=== PATIENT | male | born 1945 | race Two or more races ===

== ENCOUNTER 2019-07-13 15:47 | Inpatient (IN) | payer MEDICARE, MEDICAID ==
[~2019-07-13] VITALS: Ht 172.7 cm; Wt 77.1 kg
[2019-07-13] VITALS: BP 157/80
[2019-07-13] MEDS ORDERED: SODIUM CHLORIDE 0.9% 1,000 ML IV ONE (16:09)
[2019-07-13 17:13] LABS: CHLORIDE 92 mEq/L (98-107)
[2019-07-13 17:24] LABS: BASOPHILS % 0.8 % (0.0-2.0); EOSINOPHILS % 0.2 % (0.0-5.0); HEMATOCRIT. 40.5 % (42.0-52.0); HEMOGLOBIN. 14.6 g/dL (14.0-18.0); LYMPHOCYTES % 7.6 % (20.0-50.0); MEAN CORPUSCULAR HEMOGLOBIN 36.1 pg (28.0-32.0); MEAN CORPUSCULAR VOLUME 100.4 fL (80.0-94.0); MEAN PLATELET VOLUME 8.1 fl (7.4-10.4); MONOCYTES % 11.3 % (2.0-8.0); NEUTROPHILS % 80.1 % (40.0-76.0); PLATELET 516 x1000/uL (130-400); RED BLOOD CELL COUNT 4.03 mill/uL (4.7-6.1); RED CELL DISTRIBUTION WIDTH 12.9 % (11.6-14.6)
[2019-07-13] MEDS ORDERED: POTASSIUM CHLORIDE 20MEQ TABLET SR PO ONE (17:45)
[2019-07-13] MEDS ORDERED: KCL 20MEQ/100ML PREMIX 100 ML IV ONE (17:45)
[2019-07-13] MEDS ORDERED: LORAZEPAM 1MG TABLET PO ONE (19:30)
[2019-07-13 22:00] VITALS: BP 167/91
[2019-07-13] MEDS ORDERED: ONDANSETRON HCL 4MG/2ML INJ IV PRN (23:45)
[2019-07-13] MEDS ORDERED: ACETAMINOPHEN 325MG TABLET PO PRN (23:45)
[2019-07-13] MEDS ORDERED: CLONIDINE 0.1MG TABLET PO PRN (23:45)
[2019-07-13] MEDS ORDERED: DOCUSATE SODIUM 100MG CAPSULE PO PRN (23:45)
[2019-07-13] MEDS ORDERED: GUAIFENESIN 200MG/10ML SUGAR FREE UDC PO PRN (23:45)
[2019-07-14] MEDS: HYDROCODONE/ACETAMINOPHEN 5/325MG TABLET PO PRN ×3 (00:33→16:48)
[2019-07-14] MEDS ORDERED: KCL 10MEQ/50ML PREMIX 50 ML IV SCH (01:00)
[2019-07-14 04:00] VITALS: BP 152/82
[2019-07-14 07:00] LABS: BASOPHILS % 0.3 % (0.0-2.0); EOSINOPHILS % 0.4 % (0.0-5.0); HEMATOCRIT. 33.2 % (42.0-52.0); HEMOGLOBIN. 11.6 g/dL (14.0-18.0); LYMPHOCYTES % 9.3 % (20.0-50.0); MEAN CORPUSCULAR HEMOGLOBIN 35.3 pg (28.0-32.0); MEAN CORPUSCULAR VOLUME 100.5 fL (80.0-94.0); MEAN PLATELET VOLUME 8.2 fl (7.4-10.4); PLATELET 482 x1000/uL (130-400); RED CELL DISTRIBUTION WIDTH 12.2 % (11.6-14.6)
[2019-07-14 07:10] LABS: CHLORIDE 98 mEq/L (98-107)
[2019-07-14 07:24] LABS: HDL CHOLESTEROL 18 mg/dL (40-59); LDL CHOLESTEROL 77 mg/dL (5-100)
[2019-07-14 08:00] VITALS: BP 117/74
[2019-07-14] MEDS: AMLODIPINE 10MG TABLET PO SCH (09:09)
[2019-07-14] MEDS: ASPIRIN 81MG EC TABLET PO SCH (09:09)
[2019-07-14] MEDS: ENOXAPARIN 40MG/0.4ML SYR SUBCUT SCH (09:10)
[2019-07-14 12:00] VITALS: BP 126/70
[2019-07-14] MEDS ORDERED: IBUP-2030 PO (15:15)
[2019-07-14] MEDS ORDERED: CARV6.2548 PO (15:15)
[2019-07-14] MEDS ORDERED: AMLO10TA80 PO (15:15)
[2019-07-14] MEDS ORDERED: OXYC-523 PO (15:15)
[2019-07-14] MEDS ORDERED: ATOR-2 PO (15:15)
[2019-07-14] MEDS ORDERED: LOSA25TA26 PO (15:15)
[2019-07-14] MEDS ORDERED: COLC0.6C3 PO (15:15)
[2019-07-14] MEDS ORDERED: ALLO100T PO (15:15)
[2019-07-14 15:32] LABS: CLARITY URINE CLOUDY (CLEAR); COLOR URINE DARK YELLOW (YELLOW); KETONES URINE NEGATIVE (NEGATIVE); LEUKOCYTE ESTERASE URINE TRACE (NEGATIVE); NITRITE URINE POSITIVE (NEGATIVE); OCCULT BLOOD URINE NEGATIVE (NEGATIVE); PH URINE 6.5 (4.5-8.0); PROTEIN URINE 1+ (NEGATIVE); SPECIFIC GRAVITY URINE 1.028 (1.005-1.030); UROBILINOGEN URINE >8.0 E.U./dL (0.2-1.0)
[2019-07-14 16:00] VITALS: BP 119/67
[2019-07-14] MEDS ORDERED: POTASSIUM CHLORIDE 20MEQ TABLET SR PO NR (18:00)
[2019-07-14 20:00] VITALS: BP 138/74
[2019-07-15] VITALS: BP 150/76
[2019-07-15 04:00] VITALS: BP 135/69
[2019-07-15 06:51] LABS: HEMATOCRIT. 32.7 % (42.0-52.0); HEMOGLOBIN. 11.6 g/dL (14.0-18.0); MEAN CORPUSCULAR HEMOGLOBIN 35.8 pg (28.0-32.0); MEAN CORPUSCULAR VOLUME 100.5 fL (80.0-94.0); MEAN PLATELET VOLUME 8.3 fl (7.4-10.4); PLATELET 456 x1000/uL (130-400); RED BLOOD CELL COUNT 3.25 mill/uL (4.7-6.1); RED CELL DISTRIBUTION WIDTH 12.6 % (11.6-14.6)
[2019-07-15 07:16] LABS: CHLORIDE 98 mEq/L (98-107)
[2019-07-15 08:00] VITALS: BP 142/75
[2019-07-15] MEDS: ASPIRIN 81MG EC TABLET PO SCH (09:58)
[2019-07-15] MEDS: AMLODIPINE 10MG TABLET PO SCH (09:58)
[2019-07-15] MEDS: ENOXAPARIN 40MG/0.4ML SYR SUBCUT SCH (09:58)
[2019-07-15] MEDS: LEVOFLOXACIN 500MG PREMIX 100 ML IV SCH (09:59)
[2019-07-15] MEDS ORDERED: MAGNESIUM 2 G PREMIX 50 ML IV NR (10:00)
[2019-07-15 12:00] VITALS: BP 133/68
[2019-07-15 14:58] LABS: PLATELET ESTIMATE INCREASED
[2019-07-15 16:00] VITALS: BP 118/67
[2019-07-15] MEDS: THIAMINE HCL 100MG TABLET PO SCH (18:10)
[2019-07-15] MEDS: FOLIC ACID 1MG TABLET PO SCH (18:10)
[2019-07-15 20:00] VITALS: BP 139/81
[2019-07-15 20:43] LABS: CREATINE KINASE 46 IU/L (39-308)
[2019-07-15 21:08] LABS: FOLIC ACID (FOLATE) SERUM > 20.00 ng/mL (>5.38)
[2019-07-15 21:18] LABS: VITAMIN B12 SERUM 334 pg/mL (211-911)
[2019-07-16] VITALS: BP 149/80
[2019-07-16 04:00] VITALS: BP 148/83
[2019-07-16 06:36] LABS: CHLORIDE 97 mEq/L (98-107)
[2019-07-16 08:16] VITALS: BP 146/81
[2019-07-16] MEDS: THIAMINE HCL 100MG TABLET PO SCH (08:37)
[2019-07-16] MEDS: FOLIC ACID 1MG TABLET PO SCH (08:37)
[2019-07-16] MEDS: ASPIRIN 81MG EC TABLET PO SCH (08:37)
[2019-07-16] MEDS: LEVOFLOXACIN 500MG PREMIX 100 ML IV SCH (08:38)
[2019-07-16] MEDS: ENOXAPARIN 40MG/0.4ML SYR SUBCUT SCH (08:38)
[2019-07-16] MEDS: AMLODIPINE 10MG TABLET PO SCH (09:00)
[2019-07-16] MEDS ORDERED: MAGNESIUM 1 G PREMIX 100 ML IV SCH (10:00)
[2019-07-16 11:21] LABS: CREATINE KINASE 31 IU/L (39-308)
[2019-07-16 12:00] VITALS: BP 136/79
[2019-07-16] MEDS: HYDROCODONE/ACETAMINOPHEN 5/325MG TABLET PO PRN (14:05)
[2019-07-16] MEDS: POTASSIUM CHLORIDE 20MEQ TABLET SR PO SCH (14:46)
[2019-07-16 16:30] VITALS: BP 152/81
[2019-07-16] MEDS: CYANOCOBALAMIN 1000MCG/ML VIAL IM SCH (19:13)
[2019-07-16] MEDS ORDERED: LIDOCAINE HCL/EPINEPHRINE 1%-EPI 1:100,000 20 ML VIAL INFIL NR (19:45)
[2019-07-16] MEDS ORDERED: METHYLPREDNISOLONE ACETATE 40MG/ML VIAL IM NR (19:45)
[2019-07-16 20:00] VITALS: BP 161/82
[2019-07-16] MEDS: CELECOXIB 200MG CAPSULE PO SCH (20:57)
[2019-07-16] MEDS: METHYLPREDNISOLONE SOD SUCC 40 MG/ML VIAL IV SCH (20:57)
[2019-07-17] VITALS: BP 159/77
[2019-07-17 04:00] VITALS: BP 160/60
[2019-07-17 07:06] LABS: MEAN CORPUSCULAR VOLUME 100.9 fL (80.0-94.0); PLATELET 547 x1000/uL (130-400); RED BLOOD CELL COUNT 3.92 mill/uL (4.7-6.1); RED CELL DISTRIBUTION WIDTH 12.9 % (11.6-14.6)
[2019-07-17 07:18] LABS: CHLORIDE 100 mEq/L (98-107)
[2019-07-17 08:00] VITALS: BP 155/93
[2019-07-17 08:00] LABS: HEMATOCRIT. 39.6 % (42.0-52.0); HEMOGLOBIN. 13.7 g/dL (14.0-18.0)
[2019-07-17 12:00] VITALS: BP 149/87
[2019-07-17] MEDS: METHYLPREDNISOLONE SOD SUCC 40 MG/ML VIAL IV SCH ×2 (12:19→21:14)
[2019-07-17] MEDS: ASPIRIN 81MG EC TABLET PO SCH (12:20)
[2019-07-17] MEDS: FOLIC ACID 1MG TABLET PO SCH (12:20)
[2019-07-17] MEDS: CYANOCOBALAMIN 1000MCG/ML VIAL IM SCH (12:20)
[2019-07-17] MEDS: THIAMINE HCL 100MG TABLET PO SCH (12:20)
[2019-07-17] MEDS: POTASSIUM CHLORIDE 20MEQ TABLET SR PO SCH (12:20)
[2019-07-17] MEDS: AMLODIPINE 10MG TABLET PO SCH (12:21)
[2019-07-17] MEDS: CALCIUM CARBONATE/VITAMIN D3 500MG TABLET PO SCH (12:21)
[2019-07-17] MEDS: CELECOXIB 200MG CAPSULE PO SCH ×2 (12:22→21:14)
[2019-07-17] MEDS: LEVOFLOXACIN 500MG PREMIX 100 ML IV SCH (12:22)
[2019-07-17] MEDS: CALCITONIN,SALMON, 3.7 ML NASAL SPRAY ONENSTRL SCH (12:22)
[2019-07-17] MEDS: ENOXAPARIN 40MG/0.4ML SYR SUBCUT SCH (12:22)
[2019-07-17 12:55] LABS: PLATELET ESTIMATE MARKEDLY INCREASED
[2019-07-17 16:13] VITALS: BP 127/74
[2019-07-17 20:00] VITALS: BP 129/73
[2019-07-18 04:00] VITALS: BP 154/73
[2019-07-18 08:00] VITALS: BP 144/71
[2019-07-18] MEDS: METHYLPREDNISOLONE SOD SUCC 40 MG/ML VIAL IV SCH ×2 (08:30→20:18)
[2019-07-18] MEDS: FOLIC ACID 1MG TABLET PO SCH (08:30)
[2019-07-18] MEDS: CYANOCOBALAMIN 1000MCG/ML VIAL IM SCH (08:30)
[2019-07-18] MEDS: ASPIRIN 81MG EC TABLET PO SCH (08:30)
[2019-07-18] MEDS: POTASSIUM CHLORIDE 20MEQ TABLET SR PO SCH (08:30)
[2019-07-18] MEDS: THIAMINE HCL 100MG TABLET PO SCH (08:30)
[2019-07-18] MEDS: CALCIUM CARBONATE/VITAMIN D3 500MG TABLET PO SCH (08:31)
[2019-07-18] MEDS: ENOXAPARIN 40MG/0.4ML SYR SUBCUT SCH (08:31)
[2019-07-18] MEDS: AMLODIPINE 10MG TABLET PO SCH (08:31)
[2019-07-18] MEDS: CELECOXIB 200MG CAPSULE PO SCH ×2 (08:31→20:19)
[2019-07-18] MEDS: CALCITONIN,SALMON, 3.7 ML NASAL SPRAY ONENSTRL SCH (08:35)
[2019-07-18] MEDS: LEVOFLOXACIN 500MG PREMIX 100 ML IV SCH (10:20)
[2019-07-18 12:00] VITALS: BP 132/76
[2019-07-18 13:06] LABS: ANTI-DNA DOUBLE STRANDED QUANT < 1 IU/mL (0-9); RNP ANTIBODY < 0.2 AI (0.0-0.9); SMITH ANTIBODY < 0.2 AI (0.0-0.9)
[2019-07-18 15:08] LABS: COMPLEMENT C3 211 mg/dL (82-167)
[2019-07-18 16:00] VITALS: BP 131/74
[2019-07-18 20:00] VITALS: BP 119/65
[2019-07-18] MEDS: HYDROCODONE/ACETAMINOPHEN 5/325MG TABLET PO PRN (20:18)
[2019-07-19] VITALS: BP 115/70
[2019-07-19] MEDS: METHYLPREDNISOLONE SOD SUCC 40 MG/ML VIAL IV SCH ×5 (00:28→23:06)
[2019-07-19 04:00] VITALS: BP 140/70
[2019-07-19 08:00] VITALS: BP 138/66
[2019-07-19] MEDS: THIAMINE HCL 100MG TABLET PO SCH (08:38)
[2019-07-19] MEDS: POTASSIUM CHLORIDE 20MEQ TABLET SR PO SCH (08:38)
[2019-07-19] MEDS: ENOXAPARIN 40MG/0.4ML SYR SUBCUT SCH (08:38)
[2019-07-19] MEDS: CALCIUM CARBONATE/VITAMIN D3 500MG TABLET PO SCH (08:38)
[2019-07-19] MEDS: AMLODIPINE 10MG TABLET PO SCH (08:38)
[2019-07-19] MEDS: ASPIRIN 81MG EC TABLET PO SCH (08:38)
[2019-07-19] MEDS: FOLIC ACID 1MG TABLET PO SCH (08:38)
[2019-07-19] MEDS: CYANOCOBALAMIN 1000MCG/ML VIAL IM SCH (08:38)
[2019-07-19] MEDS: CELECOXIB 200MG CAPSULE PO SCH ×2 (08:39→21:12)
[2019-07-19] MEDS: LEVOFLOXACIN 500MG PREMIX 100 ML IV SCH (08:44)
[2019-07-19] MEDS: CALCITONIN,SALMON, 3.7 ML NASAL SPRAY ONENSTRL SCH (08:44)
[2019-07-19 12:00] VITALS: BP 131/76
[2019-07-19 13:06] LABS: 25-HYDROXY VITAMIN D3 6.8 ng/mL (.)
[2019-07-19 15:10] LABS: ANGIOTENSION CONVERTING ENZYME 31 U/L (14-82); ANTI-MYELOPEROXIDASE AB < 9.0 U/mL (0.0-9.0); ANTI-PROTEINASE 3 ABS < 3.5 U/mL (0.0-3.5)
[2019-07-19 16:00] VITALS: BP 128/71
[2019-07-19 17:06] LABS: ALDOLASE 8.1 U/L (3.3-10.3)
[2019-07-19 20:00] VITALS: BP 121/74
[2019-07-20] VITALS: BP 131/75
[2019-07-20 04:00] VITALS: BP 125/88
[2019-07-20] MEDS: METHYLPREDNISOLONE SOD SUCC 40 MG/ML VIAL IV SCH ×3 (05:06→17:12)
[2019-07-20 08:00] VITALS: BP 139/69
[2019-07-20] MEDS: LEVOFLOXACIN 500MG PREMIX 100 ML IV SCH (08:55)
[2019-07-20] MEDS: FOLIC ACID 1MG TABLET PO SCH (08:55)
[2019-07-20] MEDS: THIAMINE HCL 100MG TABLET PO SCH (08:55)
[2019-07-20] MEDS: CALCIUM CARBONATE/VITAMIN D3 500MG TABLET PO SCH (08:55)
[2019-07-20] MEDS: CELECOXIB 200MG CAPSULE PO SCH ×2 (08:55→21:51)
[2019-07-20] MEDS: ASPIRIN 81MG EC TABLET PO SCH (08:55)
[2019-07-20] MEDS: POTASSIUM CHLORIDE 20MEQ TABLET SR PO SCH (08:55)
[2019-07-20] MEDS: ENOXAPARIN 40MG/0.4ML SYR SUBCUT SCH (08:56)
[2019-07-20] MEDS: AMLODIPINE 10MG TABLET PO SCH (09:01)
[2019-07-20] MEDS: CALCITONIN,SALMON, 3.7 ML NASAL SPRAY ONENSTRL SCH (09:01)
[2019-07-20] MEDS: CYANOCOBALAMIN 1000MCG/ML VIAL IM SCH (09:01)
[2019-07-20 09:09] LABS: CYC CITRULLINATED PEP IgG/IgA 6 units (0-19)
[2019-07-20 12:00] VITALS: BP 123/66
[2019-07-20 16:00] VITALS: BP 129/73
[2019-07-20] MEDS: PREDNISONE 20MG TABLET PO SCH (18:59)
[2019-07-20 20:00] VITALS: BP 122/64
[2019-07-20] MEDS ORDERED: ERGOCALCIFEROL 50000UNITS CAPSULE PO SCH (21:00)
[2019-07-21] VITALS: BP 125/68
[2019-07-21 04:00] VITALS: BP 132/68
[2019-07-21 08:00] VITALS: BP 124/63
[2019-07-21] MEDS ORDERED: FOLIC ACID 1MG TABLET PO SCH (09:00)
[2019-07-21] MEDS: ENOXAPARIN 40MG/0.4ML SYR SUBCUT SCH (09:24)
[2019-07-21] MEDS: CALCITONIN,SALMON, 3.7 ML NASAL SPRAY ONENSTRL SCH (09:24)
[2019-07-21] MEDS: CALCIUM CARBONATE/VITAMIN D3 500MG TABLET PO SCH (09:25)
[2019-07-21] MEDS: CELECOXIB 200MG CAPSULE PO SCH (09:25)
[2019-07-21] MEDS: POTASSIUM CHLORIDE 20MEQ TABLET SR PO SCH (09:26)
[2019-07-21] MEDS: METHOTREXATE SODIUM 2 . 5MG TABLET PO SCH ×3 (09:26→17:56)
[2019-07-21] MEDS: AMLODIPINE 10MG TABLET PO SCH (09:26)
[2019-07-21] MEDS: PREDNISONE 20MG TABLET PO SCH ×3 (09:26→17:56)
[2019-07-21] MEDS: ASPIRIN 81MG EC TABLET PO SCH (09:27)
[2019-07-21] MEDS: THIAMINE HCL 100MG TABLET PO SCH (09:27)
[2019-07-21] MEDS: LEVOFLOXACIN 500MG PREMIX 100 ML IV SCH (11:23)
[2019-07-21 12:00] VITALS: BP 107/65
[2019-07-21 13:06] LABS: ANA IFA Negative (.)
[2019-07-21 14:57] VITALS: BP 107/65
[2019-07-21 16:00] VITALS: BP 126/69
[2019-07-23 13:10] LABS: ATYPICAL P-ANCA <1:20 titer (Neg:<1:20); CYTOPLASMIC C-ANCA <1:20 titer (Neg:<1:20); PERINUCLEAR P-ANCA <1:20 titer (Neg:<1:20)
== END 2019-07-21 19:00 | DRG 70 ==
LOC: ER 16:04 → 8WST 18:40 → EDBEDREQ 18:41 → EDBEDREQSVC 18:41 → ENRESERV 20:01
PROVIDERS: ADMIT Hospitalist; ATTEND Hospitalist
PROC: 0S9C3ZZ Drainage of Right Knee Joint, Percutaneous Approach (ICD-10-PCS; principal; 2019-07-16)
PROC: 0S9D3ZZ Drainage of Left Knee Joint, Percutaneous Approach (ICD-10-PCS; 2019-07-16)
PROC: 0R9 Upper Joints, Drainage (ICD-10-PCS; 2019-07-18)
PROC: 0R9G3ZZ Drainage of Right Acromioclavicular Joint, Percutaneous Approach (ICD-10-PCS; 2019-07-18)
DX: G93.41 Metabolic encephalopathy (principal); E43 Unspecified severe protein-calorie malnutrition; G82.50 Quadriplegia, unspecified; E87.1 Hypo-osmolality and hyponatremia; N39.0 Urinary tract infection, site not specified; M48.56XA Collapsed vertebra, not elsewhere classified, lumbar region, initial encounter for fracture; E87.6 Hypokalemia; M60.842 Other myositis, left hand; M60.841 Other myositis, right hand; M60.88 Other myositis, other site; I25.10 Atherosclerotic heart disease of native coronary artery without angina pectoris; I10 Essential (primary) hypertension; D64.9 Anemia, unspecified; M15.9 Polyosteoarthritis, unspecified; D72.810 Lymphocytopenia; E53.8 Deficiency of other specified B group vitamins; M06.9 Rheumatoid arthritis, unspecified; G93.0 Cerebral cysts; E55.9 Vitamin D deficiency, unspecified; M47.816 Spondylosis without myelopathy or radiculopathy, lumbar region; M50.30 Other cervical disc degeneration, unspecified cervical region; M51.36 Other intervertebral disc degeneration, lumbar region; M47.812 Spondylosis without myelopathy or radiculopathy, cervical region; J44.9 Chronic obstructive pulmonary disease, unspecified; Z74.01 Bed confinement status; Z86.73 Personal history of transient ischemic attack (TIA), and cerebral infarction without residual deficits; Z87.891 Personal history of nicotine dependence; Z79.899 Other long term (current) drug therapy; Z68.25 Body mass index [BMI] 25.0-25.9, adult; Z91.81 History of falling
CPT/HCPCS: 36415; 70551; 71045; 72141; 72146; 72148; 73030; 73100; 73110; 73130; 73220; 73521; 73562; 73630; 73718; 80061; 81003; 82085; 82140; 82164; 82306; 82550; 82607; 82746; 82962; 83520; 83735; 84134; 84484; 84550; 85651; 86160; 86200; 86225; 86235; 86256; 86431; 86592; 86780; 87077; 87186; 92610; 93005; 93306; 93970; 97162; 97166; 97530; 97535; 99291; J1030; J1650; J1956; J2920; J3420; J3475; J3480; J3490; J7030; J7040; J7512; J8610; A4315

== ENCOUNTER 2020-01-12 15:13 | Inpatient (IN) | payer MEDICARE, MEDICAID ==
[~2020-01-12] VITALS: Ht 172.7 cm; Wt 71.2 kg
[~2020-01-12 15:13] MED LIST: ALLO100T PO; AMLO10TA80 PO; ATOR-2 PO; CARV6.2548 PO; COLC0.6C3 PO; IBUP-2030 PO; LOSA25TA26 PO; OXYC-523 PO
[2020-01-12] MEDS ORDERED: ONDANSETRON HCL 4MG/2ML INJ IV STA (15:43)
[2020-01-12] MEDS ORDERED: SODIUM CHLORIDE 0.9% 1000ML BAG (SEPSIS BOLUS) IV ONE (15:45)
[2020-01-12 16:25] LABS: BASOPHILS % 0.6 % (0.0-2.0); EOSINOPHILS % 0.5 % (0.0-5.0); HEMATOCRIT. 46.1 % (42.0-52.0); HEMOGLOBIN. 15.9 g/dL (14.0-18.0); LYMPHOCYTES % 17.5 % (20.0-50.0); MEAN CORPUSCULAR HEMOGLOBIN 33.6 pg (28.0-32.0); MEAN CORPUSCULAR VOLUME 97.3 fL (80.0-94.0); MEAN PLATELET VOLUME 8.7 fl (7.4-10.4); MONOCYTES % 12.5 % (2.0-8.0); NEUTROPHILS % 68.9 % (40.0-76.0); PLATELET 251 x1000/uL (130-400); RED BLOOD CELL COUNT 4.74 mill/uL (4.7-6.1); RED CELL DISTRIBUTION WIDTH 17.2 % (11.6-14.6)
[2020-01-12 16:30] LABS: PROTHROMBIN TIME 11.2 sec (9.6-11.0)
[2020-01-12 16:35] LABS: CHLORIDE 93 mEq/L (98-107)
[2020-01-12] MEDS ORDERED: ASPIRIN 81MG TABLET PO ONE (17:30)
[2020-01-12 18:34] LABS: CLARITY URINE TURBID (CLEAR); COLOR URINE ORANGE (YELLOW); KETONES URINE TRACE (NEGATIVE); LEUKOCYTE ESTERASE URINE 3+ (NEGATIVE); NITRITE URINE POSITIVE (NEGATIVE); OCCULT BLOOD URINE NEGATIVE (NEGATIVE); PH URINE 8.5 (4.5-8.0); PROTEIN URINE 2+ (NEGATIVE); SPECIFIC GRAVITY URINE 1.022 (1.005-1.030); UROBILINOGEN URINE >=8.0 E.U./dL (0.2-1.0)
[2020-01-12] MEDS ORDERED: DOCUSATE SODIUM 100MG CAPSULE PO PRN (20:00)
[2020-01-12] MEDS ORDERED: ACETAMINOPHEN 325MG TABLET PO PRN (20:00)
[2020-01-12] MEDS ORDERED: GUAIFENESIN 200MG/10ML SUGAR FREE UDC PO PRN (20:00)
[2020-01-12] MEDS ORDERED: CLONIDINE 0.1MG TABLET PO PRN (20:00)
[2020-01-12] MEDS ORDERED: KCL 10MEQ/50ML PREMIX 50 ML IV ONE (20:00)
[2020-01-12] MEDS ORDERED: MAGNESIUM/ALUMINUM HYDROXIDE/SIMETHICONE 30ML UDC PO PRN (20:00)
[2020-01-12] MEDS ORDERED: ONDANSETRON HCL 4MG/2ML INJ IV PRN (20:00)
[2020-01-12] MEDS: DEXT 5%/0.45% NACL KCL 10MEQ/L 1,000 ML IV SCH (22:12)
[2020-01-12] MEDS: MULTIVITAMINS,THER W-MINERALS TABLET PO SCH (22:45)
[2020-01-12] MEDS: HYDROCODONE/ACETAMINOPHEN 5/325MG TABLET PO PRN (22:46)
[2020-01-12] MEDS ORDERED: PRED1TAB PO (22:52)
[2020-01-12 22:59] VITALS: BP 143/94
[2020-01-12] MEDS ORDERED: LEVOFLOXACIN 500MG PREMIX 100 ML IV SCH (23:30)
[2020-01-12 23:54] LABS: CREATINE KINASE 114 IU/L (39-308)
[2020-01-12 23:55] LABS: CREATINE KINASE MB FRACTION < 1.0 ng/mL (0.5-3.6)
[2020-01-13] VITALS: BP 113/80
[2020-01-13 04:00] VITALS: BP 123/77
[2020-01-13 06:14] LABS: CHLORIDE 96 mEq/L (98-107)
[2020-01-13 06:23] LABS: LDL CHOLESTEROL 98 mg/dL (5-100)
[2020-01-13 06:25] LABS: CREATINE KINASE 105 IU/L (39-308); HDL CHOLESTEROL 38 mg/dL (40-59)
[2020-01-13 06:28] LABS: CREATINE KINASE MB FRACTION 1.4 ng/mL (0.5-3.6)
[2020-01-13 06:42] LABS: BASOPHILS % 0.6 % (0.0-2.0); EOSINOPHILS % 1.6 % (0.0-5.0); HEMATOCRIT. 36.1 % (42.0-52.0); HEMOGLOBIN. 12.9 g/dL (14.0-18.0); LYMPHOCYTES % 22.7 % (20.0-50.0); MEAN CORPUSCULAR HEMOGLOBIN 34.4 pg (28.0-32.0); MEAN CORPUSCULAR VOLUME 96.4 fL (80.0-94.0); MEAN PLATELET VOLUME 8.6 fl (7.4-10.4); MONOCYTES % 12.2 % (2.0-8.0); NEUTROPHILS % 62.9 % (40.0-76.0); PLATELET 160 x1000/uL (130-400); RED BLOOD CELL COUNT 3.75 mill/uL (4.7-6.1); RED CELL DISTRIBUTION WIDTH 16.5 % (11.6-14.6)
[2020-01-13 08:00] VITALS: BP 150/80
[2020-01-13] MEDS: ASPIRIN 81MG EC TABLET PO SCH (08:24)
[2020-01-13] MEDS: ENOXAPARIN 40MG/0.4ML SYR SUBCUT SCH (08:24)
[2020-01-13] MEDS: MULTIVITAMINS,THER W-MINERALS TABLET PO SCH (08:24)
[2020-01-13] MEDS: METOPROLOL TARTRATE 25MG TABLET PO SCH ×2 (08:24→20:10)
[2020-01-13] MEDS: DEXT 5%/0.45% NACL KCL 10MEQ/L 1,000 ML IV SCH ×2 (08:25→22:38)
[2020-01-13] MEDS ORDERED: MAGNESIUM 2 G PREMIX 50 ML IV SCH (11:00)
[2020-01-13 12:00] VITALS: BP 129/70
[2020-01-13] MEDS: HYDROCODONE/ACETAMINOPHEN 5/325MG TABLET PO PRN ×2 (13:03→20:11)
[2020-01-13 20:00] VITALS: BP 114/65
[2020-01-13] MEDS: LEVOFLOXACIN 500MG PREMIX 100 ML IV SCH (20:11)
[2020-01-14] VITALS (7 sets, daily range): BP systolic 104–143; BP diastolic 65–80
[2020-01-14] MEDS: HYDROCODONE/ACETAMINOPHEN 5/325MG TABLET PO PRN ×2 (05:45→21:46)
[2020-01-14 05:52] LABS: HEMATOCRIT. 38.4 % (42.0-52.0); HEMOGLOBIN. 13.4 g/dL (14.0-18.0); MEAN CORPUSCULAR HEMOGLOBIN 34.2 pg (28.0-32.0); MEAN CORPUSCULAR VOLUME 98.2 fL (80.0-94.0); MEAN PLATELET VOLUME 8.5 fl (7.4-10.4); PLATELET 147 x1000/uL (130-400); RED BLOOD CELL COUNT 3.91 mill/uL (4.7-6.1); RED CELL DISTRIBUTION WIDTH 16.9 % (11.6-14.6)
[2020-01-14 06:04] LABS: CHLORIDE 97 mEq/L (98-107)
[2020-01-14] MEDS: ENOXAPARIN 40MG/0.4ML SYR SUBCUT SCH (08:31)
[2020-01-14] MEDS: MULTIVITAMINS,THER W-MINERALS TABLET PO SCH (08:31)
[2020-01-14] MEDS: ASPIRIN 81MG EC TABLET PO SCH (08:31)
[2020-01-14] MEDS: METOPROLOL TARTRATE 25MG TABLET PO SCH ×2 (08:31→21:37)
[2020-01-14] MEDS: DEXT 5%/0.45% NACL KCL 10MEQ/L 1,000 ML IV SCH ×2 (11:46→15:38)
[2020-01-14] MEDS ORDERED: MAGNESIUM 2 G PREMIX 50 ML IV ONE (12:00)
[2020-01-14 17:24] LABS: PLATELET ESTIMATE NORMAL
[2020-01-14] MEDS: LEVOFLOXACIN 500MG PREMIX 100 ML IV SCH (21:36)
[2020-01-15 00:20] VITALS: BP 115/68
[2020-01-15 04:00] VITALS: BP 125/75
[2020-01-15] MEDS: DEXT 5%/0.45% NACL KCL 10MEQ/L 1,000 ML IV SCH (04:45)
[2020-01-15 06:37] LABS: CHLORIDE 104 mEq/L (98-107)
[2020-01-15 07:43] VITALS: BP 137/73
[2020-01-15] MEDS: ASPIRIN 81MG EC TABLET PO SCH (08:23)
[2020-01-15] MEDS: MULTIVITAMINS,THER W-MINERALS TABLET PO SCH (08:23)
[2020-01-15] MEDS: ENOXAPARIN 40MG/0.4ML SYR SUBCUT SCH (08:24)
[2020-01-15] MEDS: METOPROLOL TARTRATE 25MG TABLET PO SCH ×2 (09:00→20:44)
[2020-01-15] MEDS: HYDROCODONE/ACETAMINOPHEN 5/325MG TABLET PO PRN (10:02)
[2020-01-15] MEDS: MAGNESIUM OXIDE 400MG TABLET PO SCH (10:39)
[2020-01-15 11:31] VITALS: BP 132/77
[2020-01-15] MEDS ORDERED: MAGNESIUM 2 G PREMIX 50 ML IV NR (12:00)
[2020-01-15 16:22] VITALS: BP 127/69
[2020-01-15 20:16] VITALS: BP 150/84
[2020-01-15] MEDS ORDERED: LEVOFLOXACIN 250MG TABLET PO SCH (21:00)
[2020-01-16 00:32] VITALS: BP 143/79
[2020-01-16 04:00] VITALS: BP 148/80
[2020-01-16 06:10] LABS: BASOPHILS % 0.4 % (0.0-2.0); EOSINOPHILS % 3.1 % (0.0-5.0); HEMATOCRIT. 34.9 % (42.0-52.0); LYMPHOCYTES % 29.8 % (20.0-50.0); MEAN CORPUSCULAR VOLUME 98.9 fL (80.0-94.0); MEAN PLATELET VOLUME 8.1 fl (7.4-10.4); NEUTROPHILS % 54.7 % (40.0-76.0); PLATELET 174 x1000/uL (130-400); RED BLOOD CELL COUNT 3.53 mill/uL (4.7-6.1); RED CELL DISTRIBUTION WIDTH 17.1 % (11.6-14.6)
[2020-01-16 07:23] LABS: CHLORIDE 105 mEq/L (98-107)
[2020-01-16 08:00] VITALS: BP 144/81
[2020-01-16] MEDS: METOPROLOL TARTRATE 25MG TABLET PO SCH (08:52)
[2020-01-16] MEDS: ASPIRIN 81MG EC TABLET PO SCH (09:24)
[2020-01-16] MEDS: ENOXAPARIN 40MG/0.4ML SYR SUBCUT SCH (09:24)
[2020-01-16] MEDS: MAGNESIUM OXIDE 400MG TABLET PO SCH (09:24)
[2020-01-16] MEDS: MULTIVITAMINS,THER W-MINERALS TABLET PO SCH (09:25)
[2020-01-16] MEDS: HYDROCODONE/ACETAMINOPHEN 5/325MG TABLET PO PRN (09:35)
[2020-01-16] MEDS ORDERED: MAGNESIUM 2 G PREMIX 50 ML IV NR (11:30)
[2020-01-16 12:00] VITALS: BP 151/85
[2020-01-16 13:43] VITALS: BP 151/85
[2020-01-16] MEDS ORDERED: AMLODIPINE 5MG TABLET PO SCH (21:00)
== END 2020-01-16 14:43 | disposition home health service (06) | DRG 690 ==
LOC: ER 15:13 → 6WST 17:30 → EDBEDREQSVC 17:34 → EDBEDREQ 17:34 → EDBEDREQTM 17:34 → ENRESERV 20:20 → 7WST 01-15 11:32
PROVIDERS: ADMIT Hospitalist; ATTEND Hospitalist
DX: N39.0 Urinary tract infection, site not specified (principal); I25.110 Atherosclerotic heart disease of native coronary artery with unstable angina pectoris; E87.2 Acidosis; R07.89 Other chest pain; E83.42 Hypomagnesemia; E87.6 Hypokalemia; B96.4 Proteus (mirabilis) (morganii) as the cause of diseases classified elsewhere; M19.90 Unspecified osteoarthritis, unspecified site; W18.30XA Fall on same level, unspecified, initial encounter; Y93.89 Activity, other specified; Y92.89 Other specified places as the place of occurrence of the external cause; Y99.8 Other external cause status; Z79.899 Other long term (current) drug therapy; Z86.73 Personal history of transient ischemic attack (TIA), and cerebral infarction without residual deficits
CPT/HCPCS: 36415; 71045; 71100; 80053; 80061; 81003; 82550; 82553; 83605; 83735; 83880; 84145; 84484; 85025; 87077; 87186; 93005; 93970; 96361; 96374; 97116; 97162; 97166; 97530; 97535; 99285; J1650; J1956; J2405; J3475; J3480; J7030

== ENCOUNTER 2022-05-22 19:50 | Inpatient (IN) | payer BC, MEDICAID ==
[~2022-05-22] VITALS: Ht 175.3 cm; Wt 65.0 kg
[~2022-05-22 19:50] MED LIST changes: -AMLO10TA80 PO; -OXYC-523 PO; +OXYC1TAB5 PO; +PRED1TAB PO
[2022-05-22] MEDS ORDERED: DEXTROSE 50% WATER 50ML SYRINGE IV ONE (20:15)
[2022-05-22 20:26] LABS: BG BASE EXCESS -21.3 mmol/L (-2.0-2.0); BG CARBOXYHEMOGLOBIN 0.3 % (0.5-1.5); BG DEOXYHEMOGLOBIN 0.6 % (0.0-5.0); BG FRACTION INSPIRED OXYGEN 100; BG HCO3 ACT 6.2 mmol/L (22.0-26.0); BG METHEMOGLOBIN 0.2 % (0.0-1.5); BG OXYGEN SATURATION 99.4 % (92.0-98.5); BG OXYHEMOGLOBIN 98.9 % (94.0-97.0); BG PCO2 19.8 mmHg (35.0-45.0); BG PH 7.116 (7.350-7.450); BG PO2 330.3 mmHg (75.0-100.0); BG SAMPLE SITE RIGHT BRACHIAL; BG TOTAL HEMOGLOBIN 12.4 g/dL (12.0-18.0); BG VENT MODE MASK - BIPAP
[2022-05-22 20:50] LABS: HEMATOCRIT. 39.4 % (42.0-52.0); HEMOGLOBIN. 13.2 g/dL (14.0-18.0); MEAN CORPUSCULAR HEMOGLOBIN 40.5 pg (28.0-32.0); MEAN CORPUSCULAR VOLUME 121.2 fL (80.0-94.0); MEAN PLATELET VOLUME 8.8 fl (7.4-10.4); PLATELET 200 x1000/uL (130-400); RED BLOOD CELL COUNT 3.25 mill/uL (4.7-6.1); RED CELL DISTRIBUTION WIDTH 15.4 % (11.6-14.6)
[2022-05-22] MEDS ORDERED: PANTOPRAZOLE SODIUM 40 MG/VIAL IV STA (20:52)
[2022-05-22] MEDS ORDERED: PROPOFOL 10MG/ML 100ML 100 ML IV ONE (21:00)
[2022-05-22] MEDS ORDERED: MIDAZOLAM HCL 100 MG in DEXT 5% WATER 80 ML IV ONE (21:00)
[2022-05-22 21:03] LABS: CHLORIDE 93 mEq/L (98-107)
[2022-05-22] MEDS ORDERED: MIDAZOLAM 100MG/100ML PMX 100 ML IV NR (21:15)
[2022-05-22 21:28] LABS: NUCLEATED RED BLOOD CELLS 1 /100 WBC; PLATELET ESTIMATE NORMAL
[2022-05-22 21:53] LABS: INR 1.7; PARTIAL THROMBOPLASTIN TIME 47.4 sec (23.4-31.0); PROTHROMBIN TIME 17.8 sec (9.6-11.0)
[2022-05-22] MEDS ORDERED: NOREPINEPHRINE 8MG/250ML PMX 250 ML IV ONE (22:30)
[2022-05-22 22:34] LABS: BG BASE EXCESS -22.9 mmol/L (-2.0-2.0); BG CARBOXYHEMOGLOBIN 0.3 % (0.5-1.5); BG DEOXYHEMOGLOBIN 4.4 % (0.0-5.0); BG FRACTION INSPIRED OXYGEN 60; BG HCO3 ACT 10.1 mmol/L (22.0-26.0); BG METHEMOGLOBIN 0.2 % (0.0-1.5); BG OXYGEN SATURATION 95.6 % (92.0-98.5); BG OXYHEMOGLOBIN 95.1 % (94.0-97.0); BG PCO2 52.4 mmHg (35.0-45.0); BG PH 6.901 (7.350-7.450); BG PO2 128.6 mmHg (75.0-100.0); BG SAMPLE SITE RIGHT BRACHIAL; BG TOTAL HEMOGLOBIN 13.5 g/dL (12.0-18.0); BG VENT MODE VENT - AC
[2022-05-22] MEDS ORDERED: VANCOMYCIN 1G PREMIX 200 ML IV SCH (23:30)
[2022-05-22] MEDS ORDERED: CEFTRIAXONE 1 G PREMIX 50 ML IV ONE (23:30)
[2022-05-23 03:30] VITALS: BP 78/52
[2022-05-23] MEDS ORDERED: PHENYLEPHRINE 50 MG in DEXTROSE 5% WATER 250 ML IV PRN (03:30)
[2022-05-23] MEDS ORDERED: OCTREOTIDE 1,000 MCG in SODIUM CHLORIDE 0.9% 100 ML IV SCH (04:00)
[2022-05-23 04:03] LABS: HEMATOCRIT 39.8 % (42.0-52.0); HEMOGLOBIN 12.9 g/dL (14.0-18.0)
[2022-05-23] MEDS ORDERED: SODIUM BICARBONATE 150 MEQ in DEXTROSE 5% WATER 1,000 ML IV STA (04:26)
[2022-05-23] MEDS ORDERED: SODIUM CHLORIDE 0.9% 1,000 ML IV ONE ×2 (04:30)
[2022-05-23] MEDS ORDERED: NOREPINEPHRINE 8MG/250ML PMX 250 ML IV NR (04:45)
[2022-05-23] MEDS ORDERED: MIDAZOLAM 100MG/100ML PMX 100 ML IV NR (04:45)
[2022-05-23] MEDS ORDERED: NOREPINEPHRINE 8MG/250ML PMX 250 ML IV ONE (04:45)
== END 2022-05-23 08:18 | DRG 208 ==
LOC: ER 19:50 → MICUSO 23:49
PROVIDERS: ADMIT Internal Medicine; ATTEND Internal Medicine
PROC: 5A12012 Performance of Cardiac Output, Single, Manual (ICD-10-PCS; principal; 2022-05-22)
PROC: 5A1935Z Respiratory Ventilation, Less than 24 Consecutive Hours (ICD-10-PCS; 2022-05-22)
PROC: 0BH17EZ Insertion of Endotracheal Airway into Trachea, Via Natural or Artificial Opening (ICD-10-PCS; 2022-05-22)
PROC: 05HM33Z Insertion of Infusion Device into Right Internal Jugular Vein, Percutaneous Approach (ICD-10-PCS; 2022-05-22)
DX: J96.90 Respiratory failure, unspecified, unspecified whether with hypoxia or hypercapnia (principal); E87.2 Acidosis; K92.2 Gastrointestinal hemorrhage, unspecified; I46.9 Cardiac arrest, cause unspecified; E16.2 Hypoglycemia, unspecified; M19.90 Unspecified osteoarthritis, unspecified site; Z86.73 Personal history of transient ischemic attack (TIA), and cerebral infarction without residual deficits; R41.82 Altered mental status, unspecified
CPT/HCPCS: 31500; 36415; 36600; 71045; 80053; 82375; 82805; 83605; 83880; 84484; 85014; 85018; 85025; 86850; 86900; 93005; 94002; 99291; C9113; J0696; J2250; J2354; J2370; J2704; J3370; J3490; J7030; J7050; J7060; J7070